=== PATIENT | female | born 1975 ===

== ENCOUNTER 2024-11-08 08:07 | Outpatient (REF) | payer OTHER, SELFPAY | END 2024-11-08 08:08 | disposition home or self-care (01) | LOC: HO.HOSX 08:07 | PROVIDERS: Visit Provider Physician Assistant | DX: Z13.89 Encounter for screening for other disorder (principal) ==

== ENCOUNTER 2024-11-29 15:22 | Outpatient (REF) | payer OTHER, SELFPAY ==
--- OUTSIDE RECORDS SUMMARY | 2024-12-02 15:24 | XMS_ITS | Clinical Summary ---
Author Organization [facility] Address [address] [place] [address] Care Team Providers Care Commercial Sales Director Name Role Phone Olga Anaya [facility] Primary Care Provider [phone] Source Comments PLEASE NOTE, if this patient is a minor, it may be UNLAWFUL to discuss sensitive information that is contained in these records (such as FAMILY PLANNING, MENTAL HEALTH or SUBSTANCE ABUSE) with the minor patient's parent or other person without the patient's specific authorization.[facility] Allergies Active Allergy Reactions Criticality Noted Date Comments Metformin Diarrhea 10/11/2020 Medications hydrocortisone 2.5 % creamIndications:R richardson Apply topically 2 (two) times daily To lower leg rash 60 g 1 04/11/20 23 Active MISCELLANEOUS MEDICAL SUPPLY MISCIndications:ed carlos enrique due to chronic venous insufficiency Knee high compression stockings 15-20mm Hg to be used daily x 99 years dispense 2 pairs Indications: visible water retention from chronic venous insufficiency 2 Each 12/27/19 24 Active pen needle, diabetic (PEN NEEDLE) 32 gauge x ndleIndications:Ty pe 2 diabetes mellitus with hyperglycemia, with long-term current use of insulin ([facility]) Use to inject insulin up to 4x/daily. E11.65 100 Each 03/29/20 24 Active blood sugar diagnostic (FREESTYLE PRECISION HILDA STRIPS) stripsIndications: Uncontrolled type 2 diabetes mellitus with hyperglycemia ([facility]) USE 1 TEST STRIP UP TO TWICE DAILY NEEDED TO CHECK BLOOD SUGAR WHEN PROMPTED BY DEE FOR HYPER OR HYPO 100 Each 05/01/20 24 Active omeprazole (PRILOSEC) [address] capsuleIndications :Gastroesophageal reflux disease without esophagitis Take 1 Capsule by mouth once daily 90 Capsule 5 06/07/20 24 Active blood-glucose sensor (FREESTYLE DEE 3 PLUS SENSOR) deviIndications:Ty pe 2 diabetes mellitus with hyperglycemia, with long-term current use of insulin ([facility]) Place 1 sensor to back of upper arm every 15 days. Use to monitor blood sugar continuously (Freestyle Dee 3 Plus) 2 Each 11 07/05/20 24 Active rosuvastatin (CRESTOR) 40 mg tabletIndications: Hyperlipidemia with target LDL less than 100 Take 1 Tablet by mouth every evening For cholesterol 90 Tablet 3 07/05/20 24 Active semaglutide (OZEMPIC) 2 mg/dose (8 mg/3 mL) pen injectorIndication s:Type 2 diabetes mellitus with hyperglycemia, with long-term current use of insulin ([facility]),Class 1 obesity due to excess calories with serious comorbidity and body mass index (BMI) of 30.0 to 30.9 in adult Inject 2 mg into the skin once a week Every Monday stop 1 mg 3 mL 11 07/30/20 24 Active meloxicam (MOBIC) 15 mg tabletIndications: Bilateral elbow joint pain Take 1 Tablet by mouth once daily For pain 30 Tablet 1 09/18/19 25 Active diclofenac sodium (VOLTAREN) 1 % gelIndications:Chr onic upper back pain,Chronic pain of multiple joints Apply 2 g topically 2 (two) times daily 100 g 1 09/18/19 25 Active acetaminophen (TYLENOL) 500 mg tabletIndications: Cough,Body aches,Acute nonintractable headache, unspecified headache type Take 2 Tablets by mouth every 8 (eight) hours as needed for pain 60 Tablet 2 09/18/19 25 Active cetirizine (ZYRTEC) 10 mg tabletIndications: Rash TAKE 1 TABLET BY MOUTH EVERY DAY FOR ALLERGIES/ITCHING 90 Tablet 09/18/19 25 Active levothyroxine 88 mcg tabletIndications: Hypothyroidism, unspecified type TAKE 1 TABLET BY MOUTH EVERY MORNING STOP LEVOTHYROXINE 75MCG 90 Tablet 1 09/18/19 25 Active insulin glargine 100 unit/mL (3 mL) penIndications:Typ e 2 diabetes mellitus with hyperglycemia, with long-term current use of insulin ([facility]) Inject 34 Units into the skin nightly at bedtime dose increase 15 mL 5 09/27/19 25 Active insulin aspart (NOVOLOG) 100 unit/mL (3 mL)Indications:Typ e 2 diabetes mellitus with hyperglycemia, with long-term current use of insulin ([facility]) Inject 10-20 Units into the skin 3 (three) times daily before meals (10 units before breakfast and dinner, 20 units before lunch) - max 40 units/day 15 mL 5 09/27/19 25 Active omega-3 acid ethyl esters (LOVAZA) 1 gram capsuleIndications :Hypertriglyceride nina Take 2 Capsules by mouth 2 (two) times daily 360 Capsule 3 09/27/19 25 Active ferrous sulfate 325 mg (65 mg iron) tabletIndications: Iron deficiency anemia secondary to inadequate dietary iron intake Take 1 Tablet by mouth once daily with breakfast 90 Tablet 1 10/03/19 25 Active Active Problems Problem Noted Date Diagnosed Date Type 2 diabetes mellitus wit h hyperglycemia, with long-term current use of insulin ([facility]) 05/05/2023 Overview (11/29/2024): DM dx: ~2008 per patient reports Glucometer: Freestyle Dee 3 Plus Current Diabetes RX: Lantus Solostar - inject 34 units at bedtime Insulin aspart - inject 10-20 units into the skin 3 times daily before meals (10 units before breakfast and dinner, 20 units before lunch, max 40 units/day) Ozempic 2 mg once weekly every Monday KAYLEE-I/ARB: BP is well-controlled, urine microalbumin/Scr ratio is <30 mg/g as of 02/23/24, eGFR >60 mL/min/1.73m2 as of 03/05/24. Per KDIGO guidelines, patient is low-risk for microalbuminuria, will hold off on KAYLEE-I/ARB for now. Statin: Rosuvastatin 40 mg daily every evening and [place] 3 - 2 capsules twice daily Pneumococcal vaccine: Pt declines PCV20 Diabetes foot exam: 02/09/24 with [facility] Normal pedal pulses, normal monofilament exam, and hygiene: good. Denies pain, numbness, tingling and burning in her feet. No Peripheral Vascular Disease. No foot ulcer, no toe or foot deformities Diabetes retinal exam: Scheduled on 02/25/25 at [facility] 06/24/24 at [facility] Glaucoma suspect, bilateral - monitor and trend glaucoma elements and testing as directed (C/D stable, IOP WNL. Totally unreliable HVF OS, possible trace (s) defect) F/U 4 months. 02/22/24 at [facility] Pnguecula - stable Vitreous floaters - resolved Glaucoma suspect - some defects and decreased avg RNFL thickness on OCT. C/D stable since '. 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 Astigmatism. Presbyopia Cysts of both ovaries 10/11/2020 Overview (12/10/2021): 11/26/2021: [facility]: US of pelvis/uterus: Impression: 1. Mildly enlarged uterus, compatible with the multiparous state. 2. 1.7 cm complicated cyst in the right ovary, most likely physiologic. 3. No free pelvic fluid. 09/26/2020: [facility]; CT pf abd/pelvis: Impression: 1. No evidence of urinary tract calculus or obstruction. 2. Subtle heterogeneity of the nephrograms, left greater than right, possibly early changes of pyelonephritis in this setting. 3. Bilateral adnexal masses, most likely ovarian cysts. Chronic RLQ pain 10/11/2020 Overview (10/11/2020): 09/26/2020: [facility]; CT pf abd/pelvis: Impression: 1. No evidence of urinary tract calculus or obstruction. 2. Subtle heterogeneity of the nephrograms, left greater than right, possibly early changes of pyelonephritis in this setting. 3. Bilateral adnexal masses, most likely ovarian cysts. S/P cholecystectomy: 08/16/2019 08/23/2020 Cyst of left kidney 08/02/2020 Overview (12/10/2021): 07/10/2020: [facility]: Us of bladder: IMPRESSION: Normal ultrasound examination of the urinary bladder. 07/10/2020: [facility]: US of abdomen:IMPRESSION: Coarsened hepatic echotexture consistent with fatty infiltration and/or hepatocellular disease as also seen on the prior study of 06/21/2016. Cholelithiasis as also seen previously; the gallbladder is again seen to be filled with calculi and sludge. There is no ultrasonographic evidence of acute cholecystitis. Moderate splenomegaly, mildly increased since the prior study. The kidneys are of normal appearance with the incidental exception of a 7.3 x 6.3 x 4.5 mm left kidney lower pole cyst. The pancreas is incompletely evaluated on this study Vertigo 04/12/2020 Nontraumatic incomplete tear of right rotator cu ff 03/08/2019 Overview (10/19/2019): 02/18/2019: Saw Ortho Dr chetna mena. Had Mri: showed Small partial thickness tear of supraspinatus. 02/11/2019: [facility]; MRI of Right shoulder: IMPRESSION: Supraspinatus tendinosis with a small partial-thickness tear in the footprint. Iron deficiency anemia secon yamile to inadequate dietary iron intake 03/08/2019 Fatty liver 02/27/2019 Overview (02/27/2019): Fatty liver and cholelithiasis in gallbladder, no acute cholecystitis per abd US 06/21/16 Diabetic eye exam ([facility]) 12/18/2017 Overview (06/26/2023): 02/09/23 [facility] some defects in retinal layers on Wellness OCT, no CME, FIELD MAP EDITOR. Astigmatism. Presbyopia [facility] 11/20/2017 Bilateral: Epiphora condition is resolved Bilateral: Headache condition is stable Bilateral: pinguecula R>L N>T condition is stable Bilateral: Vitreous floaters condition is stable Bilateral: the patient is glaucoma suspect based on disc cupping asymmetry L sl >R IOP equal and WNL Bilateral: Flashes, retina intact, no etiology seen. Condition is stable Bilateral: Type 1 diabetes No macular edema No retinopathy Myopia Astigmatism Presbyopia Seborrheic dermatitis 05/31/2017 Overview (05/31/2017): Pt is currently seeing by [facility] of tubal ligation 12/13/2015 Chronic tension-type headache, not intractable 1 09/14/2014 Hypothyroidism 11/24/2014 Hyperlipidemia LDL goal <100 08/22/2013 Mild vitamin D deficiency 08/22/2013 Resolved Problems Problem Noted Date Diagnosed Date Resolved Date Class 1 obesity due to exces s calories with serious comorbidity and body mass index (BMI) of 30.0 to 30.9 in adult 01/19/2024 09/27/2024 Calculus of gallbladder with out cholecystitis without obstruction 02/27/2019 10/11/2020 Overview (08/02/2020): 07/10/2020: [facility]: Us of bladder: IMPRESSION: Normal ultrasound examination of the urinary bladder. 07/10/2020: [facility]: US of abdomen:IMPRESSION: Coarsened hepatic echotexture consistent with fatty infiltration and/or hepatocellular disease as also seen on the prior study of 06/21/2016. Cholelithiasis as also seen previously; the gallbladder is again seen to be filled with calculi and sludge. There is no ultrasonographic evidence of acute cholecystitis. Moderate splenomegaly, mildly increased since the prior study. The kidneys are of normal appearance with the incidental exception of a 7.3 x 6.3 x 4.5 mm left kidney lower pole cyst. The pancreas is incompletely evaluated on this study Fatty liver and cholelithiasis in gallbladder, no acute cholecystitis per abd US 06/21/16 Elevated LFTs 06/27/2016 02/27/2019 Overview (06/27/2016): Fatty liver and cholelithiasis in gallbladder, no acute cholecystitis per abd US 06/21/16 Acute cystitis without hematuria 07/14/2015 02/27/2019 Overview (07/15/2015): Urine cx- gram positive cocci Treated with nitrofurantoin. ([facility]) 07/14/2015 04/04/20 19 Encounters Date Type Department Care Team Description 11/29/2024 9:40 AM EDT Office Visit [address] [phone] Dheeraj Broussard, PharmD Andrea Marie Type 2 diabetes mellitus with hyperglycemia, with long-term current use of insulin ([facility]) (Primary Dx); Hyperlipidemia LDL goal <100 10/31/2024 10:40 AM EDT Office Visit [facility] [address] [place] [phone] Yarelis Stacy DO Tiwari, Roshni Routine Papanicolaou smear (Primary Dx); Women's annual routine gynecological examination 10/24/2024 1:20 PM EDT Telemedicine Visit [address] [phone] Karsten Jaeger, Andrea Correa Type 2 diabetes mellitus with hyperglycemia, with long-term current use of insulin ([facility]) (Primary Dx) 10/03/2024 Interim Notes [address] [phone] Dian Cavazos FNP Iron deficiency anemia secondary to inadequate dietary iron intake (Primary Dx) 09/28/2024 11:00 AM EST Office Visit [address] [phone] Amado Brumfield DDS Symptomatic periapical periodontitis (Primary Dx) 09/27/2024 9:40 AM EST Office Visit [address] [phone] Dheeraj Broussard, PharmD Andrea Marie Type 2 diabetes mellitus with hyperglycemia, with long-term current use of insulin ([facility]) (Primary Dx); Hyperlipidemia LDL goal <100 from Last 3 Months Immunizations Immunization Administration Dates Next Due Flu, Preservative Free 05/26/2023,2022,06/07/2021,06/05,06/04/2019,05/25/2018,05/30/2016 Hep B, Adult/Adol (ENERGIX/RECOMBIVAX) 06/04/2019 Hep B,adult,adjuvanted (HEPLISAV) 06/07/2021,,07/17/2020 INFLUENZA, SEASONAL, INJECTA BLE, PRESERVATIVE FREE 07/29/2014 Influenza (FLUBLOK),recombinant,injectable,pre servative Free 06/07/2024 PFIZER COVID VACCINE, PURPLE CAP, 12+ 10/21/2021,12/31/2020,12/10/2020 Pfizer COVID-19 (Comirnaty), Mrna, Lnp-s, Pf, Jaden-sucrose, 30 Mcg/0.3 Ml, 12yr+ 07/14/2023 Pfizer-BioNTech COVID-19 Vac cine Bivalent, ([place] PFIZER-BIONTECH COVID-19 VACCINE BIVALENT, ([place] CAP 08/17/2022 TDAP 02/26/2019 02/26/2019 Varicella, Live Vaccine 05/06/2019,04/02/2019 Family History Medical History Relation Name Comments No Known Problems Father Diabetes Mother Relation Name Status Comments Father Mother Social History Tobacco Use Types Packs/Day Years Used Date Smoking Tobacco: Never Smokeless Tobacco: Never Tobacco Cessation:Counseling Given: Not Answered Alcohol Use Standard Drinks/Week Comments No 0.8 (1 standard drink = 0.6 oz p ure alcohol) Social Connections Answer Date Recorded Connectedness 0 07/14/2023 Financial Resource Strain Answer Date R ecorded Financial Resource Strain 0 2022 Stress Answer Date Recorded Stress 0 07/14/2023 Physical Activity Answer Date Recorded Physical Activity 0 01/01/2019 Food Insecurity Answer Date Recorded Food 0 07/14/2023 Transportation Needs Answer Date Record ed Transportation 0 07/14/2023 Housing Stability Answer Date Recorded Housing 0 07/14/2023 Safety and Environment Answer Date Kenneth rded Safety 0 07/14/2023 Utilities Answer Date Recorded Utilities 0 07/14/2023 Employment Answer Date Recorded Stress 0 02/27/2020 Comments No Sex and Gender Information Value Date Recorded Sex Assigned at Female 05/29/2017 6:52 AM PDT Legal Sex Female 5:54 AM PDT Gender Identity Female 05/29/2017 6:52 AM PDT Sexual Orientation Straight 05/29/2017 6: 52 AM PDT Last Filed Vital Signs Vital Sign Reading Time Taken Comments Blood Pressure 110/70 11/29/2024 9:29 AM EDT Pulse 90 11/29/2024 9:29 AM EDT Temperature 37.1 ??C (98.7 ??F) 11/29/2024 9:29 AM ED T Respiratory Rate 16 11/29/2024 9:29 AM EDT Oxygen Saturation 100% 11/29/2024 9:29 AM EDT Inhaled Oxygen Concentration - - Weight 59.6 kg (131 lb 6.4 oz) 11/29/2024 9:29 A M EDT Height 144.8 cm (4' 9 ) 11/29/2024 9:29 AM EDT Body Mass Index 28.43 11/29/2024 9:29 AM EDT Plan of Treatment Upcoming Encounters Date Type Department Care Team (Late st Contact Info) Description 12/17/2024 11:00 AM EDT Office Visit [address] [phone] Karsten Jaeger, RD [address] [place] [address] Maricruz Marie [address] [place] [address] 12/27/2024 10:20 AM EDT Office Visit [address] [phone] Jeannette Lemus, TERMINAL COMPUTER OPERATOR [address] [place] [address] Maricruz Marie [address] [place] [address] 01/24/2025 9:40 AM EDT Office Visit [address] [phone] Dheeraj Broussard, PharmD [address] [place] [phone] Health Maintenance Due Date Last Done Comments Anxiety Screening 1977 Dental Examination [address] Colonography 2022 Colonoscopy 2022 Colorectal Cancer Screening 2022 FIT/gFOBT 2022 Fecal DNA 2022 Flexible Sigmoidoscopy 2022 Breast Cancer Screening (Mammogram) 12/03/2023 12/02/2022, 01/01/2021, 12/26/2020, Additional history exists [id number] ( season) 2024 07/14/2023, 08/17/2022, 10/21/2021, Additional history exists Annual Preventive Care Visit 07/14/202408/2022, 11/25/2022, 02/26/2019, Additional history exists Relationship Safety Screening/Counseling 07/14/2024 07/14/2023, 04/11/2022, 04/09/2021, Additional history exists TSH Monitoring 07/14/2024 07/14/2023, 11/2022, 06/07/2021, Additional history exists Depression Annual Screen 08/14/2024 03/05/2024 Diabetes HbA1c 12/25/2024 09/27/2024, 09/14, 06/07/2024, Additional history exists Diabetes Foot Exam 02/08/2025 02/09/2024, 06/07/2021 Urine Albumin Creatinine Rat io Screening 02/22/2025 02/23/2024, 12/27/2023, 08/17/2022, Additional history exists Serum Creatinine 03/05/2025 03/05/2024, , 02/03/2023, Additional history exists Retinopathy Screening 06/24/2025 06/24/2024 , 02/22/2024, 02/22/2024, Additional history exists Lipid Screening 09/27/2025 09/27/2024, 02/12, 05/12/2023, Additional history exists Pap Smear 11/24/2025 11/24/2022, 06/04/2019 Tobacco Screening 11/29/2025 11/29/2024, 01/27/2023 Cervical Cancer Screening 11/25/2027 Pap + HPV 11/25/2027 11/25/2022, 11/24/2022 Imm-DTaP/Tdap/Td (2 - Td or Tdap) 02/26/2029 019 HIV Screening Completed 03/05/2019 Hepatitis C Screening Completed 09/11/2020 Imm-Hepatitis B Completed 06/07/2021, 08/14, 07/17/2020, Additional history exists Imm-Influenza Completed 06/07/2024, 05/14, 08/17/2022, Additional history exists Alcohol and Drug Screen Completed 09/27/19, 10/27/2023, 08/17/2022, Additional history exists Cervical Ablation/Cold-Knife Conization Discontinued Cervical Cryotherapy Discontinued Colposcopy Discontinued Endometrial Biopsy Discontinued Excision/Leep Discontinued HPV Genotyping Discontinued Imm-Pneumococcal Discontinued Vaginal Pap Discontinued Vulvoscopy Discontinued Procedures Procedure Name Priority Date/Time Associated Diagnosis Comments GLUCOSE, BLOOD BY GLUCOSE MONITORING DEVICE (CLIA WAIVED)POCT Routine 11/29/2024 9:34 AM EDT Type 2 diabetes mellitus with hyperglycemia, with long-term current use of insulin ([facility]) OTHER ORDERS SCANNED DOCUMENT 10/18/2024 3:00 AM EST OTHER ORDERS SCANNED DOCUMENT 10/04/2024 3:00 AM EST INTRAORAL - PERIAPICAL FIRST RADIOGRAPHIC IMAGE Routine 09/28/2024 11:00 AM EST Symptomatic periapical periodontitis LIMITED ORAL EVALUATION - PROBLEM FOCUSED Routine 09/28/2024 11:00 AM EST Symptomatic periapical periodontitis LIPID PANEL Routine 09/27/2024 9:51 AM EST HEMOGLOBIN GLYCOSYLATED A1C Routine 09/27/2024 9:51 AM EST BLOOD COUNT COMPLETE AUTO&AUTO DIFRNTL WBC Routine 09/27/2024 9:51 AM EST Other iron deficiency anemia IRON, TIBC, FERRITIN PANEL Routine 09/27/2024 9:51 AM EST Other iron deficiency anemia GLYCOSYLATED (A1C) DEVICE (CLIA WAIVED) POCT Routine 09/27/2024 9:23 AM EST Type 2 diabetes mellitus with hyperglycemia, with long-term current use of insulin ([facility]) EYE EXAM 06/24/2024 3:00 AM EST COMPREHENSIVE METABOLIC PANEL Routine 03/05/2024 10:42 AM EDT Bilateral elbow joint pain Iron deficiency anemia secondary to inadequate dietary iron intake Type 2 diabetes mellitus with hyperglycemia, with long-term current use of insulin ([facility]) MICROALBUMIN/CREATINI NE RATIO, URINE, RANDOM Routine 02/23/2024 9:37 AM EDT Type 2 diabetes mellitus with hyperglycemia, with long-term current use of insulin ([facility]) TSH W/RFLX FREE T4 Routine 07/14/2023 11 :23 AM EST Hypothyroidism, unspecified type REFERRAL FOR MAMMOGRAM Routine 12/02/2022 3:00 AM EDT Encounter for screening mammogram for malignant neoplasm of breast THINPREP PAP & HPV MRNA E6/E7 RFLX HPV 16,18/[address]/NG Routine 11/24/2022 8:00 PM EDT Encounter for screening for human papillomavirus (HPV) Encounter for Papanicolaou smear of vagina as part of routine gynecological examination Screening for STDs (sexually transmitted diseases) HEPATITIS C ANTIBODY Routine 09/11/2020 10:30 AM EST Iron deficiency anemia secondary to inadequate dietary iron intake ANTIBODY HIV-1&HIV-2 SINGLE RESULT Routine 03/05/2019 2:31 PM EDT Controlled type 2 diabetes mellitus without complication, with long-term current use of insulin ([facility]) from Last 3 Months or Most Recently Relevant to Health Maintenance Results * (ABNORMAL) GLUCOSE, BLOOD BY GLUCOSE MONITORING DEVICE (CLIA WAIVED)POCT (11/29/2024 9:34 AM EDT) GLUCOSE 172(A) 70 - 100 mg/dL [facility] PO[facility] Capillary Blood Blood / Unknown 9:34 AM EDT us Dheeraj Broussard PharmD LAB - BLOOD DRAW Final Re sult [facility] POCT * OTHER ORDERS SCANNED DOCUMENT (10/18/2024 3:00 AM EST) Only the most recent of2 resultswithin the time period is included. 10/18/2024 3:00 AM EST Olga Anaya [facility] SCAN OTHER ORDERS Final Result * (ABNORMAL) IRON, TIBC, FERRITIN PANEL (09/27/2024 9:51 AM EST) [facility] FERRITIN 13(L) 16 - 232 ng/mL [facility] IRON, TOTAL 31(L) 40 - 190 mcg/dL [facility] IRON BINDING CAPACITY 381 250 - 450 mcg/dL (calc) [facility] % SATURATION 8(L) 16 - 45 % (calc) [facility] Blood Blood / Unknown 09/27/2024 9 :51 AM EST 09/27/2024 9:52 AM EST Olga Anaya [facility] LAB - BLOOD DRAW Final Result [email or web address] [address] [address], [facility] [address] [address] * (ABNORMAL) BLOOD COUNT COMPLETE AUTO&AUTO DIFRNTL WBC (09/27/2024 9:51 AM EST) [facility] WHITE BLOOD CELL COUNT 7.7 3.8 - 10.8 Thousand/ uL [facility] RED BLOOD CELL COUNT 4.71 3.80 - 5.10 Million/u L [facility] HEMOGLOBIN 11.5(L) 11.7 - 15.5 g/dL [facility] HEMATOCRIT 38.7 35.0 - 45.0 % [facility] MCV 82.2 80.0 - 100.0 fL [facility] MCH 24.4(L) 27.0 - 33.0 pg [facility] MCHC 29.7(L) 32.0 - 36.0 g/dL [facility] Comment: For adults, a slight decrease in the calculated MCHC value (in the range of 30 to 32 g/dL) is most likely not clinically significant; however, it should be interpreted with caution in correlation with other red cell parameters and the patient's clinical condition. RDW 13.3 11.0 - 15.0 % [facility] PLATELET COUNT 322 140 - 400 Thousand/ uL [facility] MPV 11.0 7.5 - 12.5 fL [facility] ABSOLUTE NEUTROPHILS 5,059 1,500 - 7,800 cells/uL [facility] ABSOLUTE LYMPHOCYTES 2,210 850 - 3,900 cells/uL [facility] ABSOLUTE MONOCYTES 300 200 - 950 cells/uL [facility] ABSOLUTE EOSINOPHILS 100 15 - 500 cells/uL [facility] ABSOLUTE BASOPHILS 31 0 - 200 cells/uL [facility] NEUTROPHILS PCT 65.7 % [facility] [employer] [facility] LYMPHOCYTES 28.7 % [facility] [employer] [facility] MONOCYTES 3.9 % [facility] [employer] [facility] EOSINOPHILS 1.3 % [facility] [employer] BASOPHILS 0.4 % [facility] [employer] [facility] Blood Blood / Unknown 09/27/2024 9 :51 AM EST 09/27/2024 9:52 AM EST Ogla Anaya [facility] LAB - BLOOD DRAW Edited Result - Final [employer] [address] [address], [employer] [address] [address] * (ABNORMAL) HEMOGLOBIN GLYCOSYLATED A1C (09/27/2024 9:51 AM EST) HEMOGLOBIN A1C 7.5(H) <5.7 % of total Hgb [facility] Comment: For someone without known diabetes, a hemoglobin A1c value of 6.5% or greater indicates that they may have diabetes and this should be confirmed with a follow-up test. For someone with known diabetes, a value <7% indicates that their diabetes is well controlled and a value greater than or equal to 7% indicates suboptimal control. A1c targets should be individualized based on duration of diabetes, age, comorbid conditions, and other considerations. Currently, no consensus exists regarding use of hemoglobin A1c for diagnosis of diabetes for children. ?? 09/27/2024 9:51 AM EST 09/27/2024 9:52 AM EST Olga Anaya [facility] LAB - BLOOD DRAW Edited Result - Final Performing Organization Address City/[facility]/ZIP Co de Phone Number [employer] [facility] [address] [address], [employer] [address] [address] * (ABNORMAL) LIPID PANEL (09/27/2024 9:51 AM EST) [facility] CHOLESTEROL, TOTAL 133 <200 mg/dL [employer] [facility] HDL CHOLESTEROL 41(L) > OR = 50 mg/dL [employer] [facility] TRIGLYCERIDES 162(H) <150 mg/dL [employer] [facility] LDL-CHOLESTEROL 68 99 mg/dL (calc) [employer] [facility] Comment: Reference range: <100 Desirable range <100 mg/dL for primary prevention; ?? <70 mg/dL for patients with CHD or diabetic patients with > or = 2 CHD risk factors. LDL-C is now calculated using the Alli calculation, which is a validated novel method providing better accuracy than the Friedewald equation in the estimation of LDL-C. Chriss DAVIS et al. MARGARITA. 2013;310(19): 8773-2321 (http://education.Bio[employer]/faq/JRX706) CHOL/HDLC RATIO 3.2 <5.0 (calc) [employer] [facility] NON-HDL CHOLESTEROL 92 <130 mg/dL (calc) [employer] [facility] Comment: For patients with diabetes plus 1 major ASCVD risk factor, treating to a non-HDL-C goal of <100 mg/dL (LDL-C of <70 mg/dL) is considered a therapeutic option. 09/27/2024 9:51 AM EST 09/27/2024 9:52 AM EST us Olga Anaya [facility] LAB - BLOOD DRAW Final Result Performing Organization Address City/[facility]/ZIP Co de Phone Number [employer] [facility] [address] [address], [employer] [address] [address] * (ABNORMAL) GLYCOSYLATED (A1C) DEVICE (CLIA WAIVED) POCT (09/27/2024 9:23 AM EST) HGB A1C 245.0(A) 4.2 - 6.5 % [facility]- BACK OFFICE POCT Capillary Blood Blood / Unknown 9:23 AM EST Dheeraj Broussard PharmD LAB - BLOOD DRAW Final Re sult [facility]- BACK OFFICE POCT * EYE EXAM (06/24/2024 3:00 AM EST) 06/24/2024 3:00 AM EST Olga REMY OTHER Edited Result - Final * (ABNORMAL) COMPREHENSIVE METABOLIC PANEL (03/05/2024 10:42 AM EDT) GLUCOSE 277(H) 65 - 139 mg/dL [facility] Comment: ?Non-fasting reference interval UREA NITROGEN (BUN) 12 7 - 25 mg/dL [facility] CREATININE (blood) 0.74 0.50 - 0.99 mg/dL [facility] EGFR 101 > OR = 60 mL/min/1. 73m2 [facility] BUN/CREATININE RATIO SEE NOTE: [facility] Comment: ?? Not Reported: BUN and Creatinine are within ?? reference range. ? SODIUM 134(L) 135 - 146 mmol/L [facility] POTASSIUM 4.8 3.5 - 5.3 mmol/L [facility] CHLORIDE 101 98 - 110 mmol/L [facility] CARBON DIOXIDE 25 20 - 32 mmol/L [facility] CALCIUM 8.9 8.6 - 10.2 mg/dL [facility] PROTEIN, TOTAL 7.5 6.1 - 8.1 g/dL [facility] ALBUMIN 4.2 3.6 - 5.1 g/dL [facility] GLOBULIN 3.3 1.9 - 3.7 g/dL (calc) [facility] ALBUMIN/GLOBULI N RATIO 1.3 1.0 - 2.5 (calc) [facility] BILIRUBIN, TOTAL 0.3 0.2 - 1.2 mg/dL [facility] ALKALINE PHOSPHATASE 87 31 - 125 U/L [facility] AST 25 10 - 35 U/L [facility] ALT 43(H) 6 - 29 U/L [facility] Blood Blood / Unknown 03/05/2024 1 0:42 AM EDT 03/05/2024 10:43 AM EDT Narrative [facility] - 03/06/2024 8:49 AM EDT FASTING:NO Olga Anaya TERMINAL COMPUTER OPERATOR LAB - BLOOD DRAW Final Result Performing Organization Address [facility] Co de Phone Number [facility] [address] [place] [address], [employer] [address] [address] * MICROALBUMIN/CREATININE RATIO, URINE, RANDOM (02/23/2024 9:37 AM EDT) Pathologist [facility] CREATININE, RANDOM URINE 22 20 - 275 mg/dL [facility] MICROALBUMIN <0.2 mg/dL [employer] [id number] Comment: Reference Range Not established MICROALBUMIN/CREA TININE RATIO, RANDOM URINE NOTE <30 TR [employer] Comment: NOTE: The urine albumin value is less than 0.2 mg/dL therefore we are unable to calculate excretion and/or creatinine ratio. The ADA defines abnormalities in albumin excretion as follows: Albuminuria Category ?Result (mg/g creatinine) Normal to Mildly increased ?? <30 Moderately increased ? 30-299 Severely increased ? > OR = 300 The ADA recommends that at least two of three specimens collected within a 3-6 month period be abnormal before considering a patient to be within a diagnostic category. Urine Urine specimen / Unknown 02/23/2024 9:37 AM EDT 02/23/2024 9:38 AM EDT Dheeraj Broussard PharmD LAB - NO BLOOD DRAW Final Result Performing Organization Address [facility]/ZIP Co de Phone Number [employer] [address] [place] [address], [place] [facility] [address] [address] * TSH W/RFLX FREE T4 (07/14/2023 11:23 AM EST) TSH W/REFLEX TO FT4 2.59 0.40 - 4.50 mIU/L [employer] [facility] Comment: ?Reference Range ?> or = 20 Years ??0.40-4.50 ? Ranges ?First trimester ?0.26-2.66 ?Second trimester ?? 0.55-2.73 ?Third trimester ?0.43-2.91 Blood Blood / Unknown 07/14/2023 1 1:23 AM EST 07/14/2023 11:24 AM EST Kristen Thakkar ASSISTANT COOK LAB - BLOOD DRAW Edited Result - Final [employer] [address] [address], [employer] [address] [address] * REFERRAL FOR MAMMOGRAM (12/02/2022 3:00 AM EDT) 12/02/2022 3:00 AM EDT Olga Anaya TERMINAL COMPUTER OPERATOR IMG RFL MAMMO Edited Result - Final * THINPREP PAP & HPV MRNA E6/E7 RFLX HPV 16,18/[address]/NG (11/24/2022 8:00 PM EDT) CHLAMYDIA TRACHOMATIS RNA, TMA NOT DETECTED NOT DETECTED [employer] [facility] NEISSERIA GONORRHOEAE RNA, TMA NOT DETECTED NOT DETECTED [employer] [facility] COMMENT [employer] [facility] CLINICAL INFORMATION See Note [employer] [facility] Comment:Routine exam LMP See Note [employer] [facility] Comment:11/15/22\ PREV. PAP See Note [employer] [facility] Comment:NONE GIVEN PREV. BX See Note [employer] [facility] Comment:NONE GIVEN SOURCE See Note [employer] [facility] Comment:Cervix STATEMENT OF ADEQUACY See Note [employer] [facility] Comment: Satisfactory for evaluation. Endocervical/transformation zone component absent. INTERPRETATION/RESU LT See Note [employer] [facility] Comment:Negative for intraep ithelial lesion or malignancy. BOTTOM BLEACHER See Note [facility] [employer] [facility] Comment: JXM, CT(ASCP) CT screening location: [address] ??[address] REVIEW BOTTOM BLEACHER See Note [employer] [facility] Comment: DCR, CT(ASCP) CT screening location: [address] ??[address] COMMENT [employer] [facility] HPV MRNA E6/E7 Not Detected Not Detected [employer] [facility] Comment: Methodology: First Leveler-Mediated Amplification This assay detects E6/E7 viral messenger RNA (mRNA) from 14 high-risk HPV types (16,18,31,33,35,39,45,51,52,56,58,59,66,68). Cervical sources are required for HPV testing. If a vaginal source from a patient who has had a total hysterectomy with removal of cervix was submitted, please contact the testing laboratory for alternative testing options. For additional information, please refer to http://education.SiBEAM/faq/TQC157y5 (This link if provided for information/ educational purposes only.) CYTOLOGY Cervix uteri structure / Unknown 11/24/2022 8:00 PM EDT 11/28/2022 9:50 AM EDT Narrative [employer] [facility] - 12/02/2022 1:42 PM EDT EXPLANATORY NOTE: The Pap is a screening test for cervical cancer. It is not a diagnostic test and is subject to false negative and false positive results. It is most reliable when a satisfactory sample, regularly obtained, is submitted with relevant clinical findings and history, and when the Pap result is evaluated along with historic and current clinical information. The analytical performance characteristics of this assay, when used to test SurePath(TM) specimens have been determined by [employer]. The modifications have not been cleared or approved by the FDA. This assay has been validated pursuant to the CLIA regulations and is used for clinical purposes. For additional information, please refer to https://education.SiBEAM/faq/OZH284 (This link is being provided for information/ educational purposes only.) Mayra Kaufman MD LAB - NO BLOOD DRAW Final Result Performing Organization Address City/[facility] Co de Phone Number [employer] [facility] [address] [address], [employer] [facility] [address] [place] [address] * HEPATITIS C ANTIBODY (09/11/2020 10:30 AM EST) [facility] HEPATITIS C VIRUS SCREEN NEGATIVE NEGATIVE [facility] Blood Blood / Unknown 09/11/2020 1 0:30 AM EST 09/11/2020 4:[address] [facility] - 09/11/2020 6:48 PM EST [employer] [address] Physician Coding Specialist - Nicole Danielson MD PT ID [id number] ORD# [id number] Olga Anaya [facility] LAB - BLOOD DRAW Final Result Performing Organization Address [facility] de Phone Number [address] [address], * HIV-1 & HIV-2 ANTIBODIES (03/05/2019 2:31 PM EDT) [facility] HIV 1 AND 2 ANTIBODY SCREEN NEGATIVE NEGATIVE [facility] Comment: This assay is a 4th generation assay allowing for earlier detection of HIV infection by detecting the presence of the HIV-1 p24 antigen as well as the traditional antibodies to HIV type 1 (including group O) and type 2. ??Use of a 4th generation assay is the current CDC recommendation for HIV screening. Blood specimen (specimen) Blood / Unknown 03/05/2019 2:31 PM EDT 03/05/2019 2:51 PM EDT Narrative [facility] - 03/05/2019 8:19 PM EDT [employer], a member of [address] [address] Physician Coding Specialist - Franchesca Benjamin MD PT ID [id number] ORD# [id number] Olga REMY LAB - BLOOD DRAW Final Result [facility] [address] [place] [address], from Last 3 Months or Most Recently Relevant to Health Maintenance Insurance Spodly Member Subscriber Plan / Payer (Ef fective 2024-Present) Name:JEAN JEFF M Relation to Subscriber:Spouse Name:JEAN JEFF Date of :1977 (Home) Address: [address] [place] [address] Payer ID:[id number] Type:Indemnity Address: [place] [id number] [place] [address] [facility] [employer] Care Teams Commercial Sales Director Relationship Specialty Start Date End Date Olga Anaya FNP [address] [place] [address] PCP - General Internal Medicine 11/26/18
--- OUTSIDE RECORDS SUMMARY | 2024-12-02 15:24 | XMS_ITS | Encounter Summary ---
Author Organization [facility] Address [address] [place] [address] Care Team Providers Care Travel Writer Name Role Phone Olga Anaya MASTER COOK Primary Care Provider [phone] Encounter Details Date Type Department Care Team (Late st Contact Info) Description 08/09/2023 Interim Notes [facility] Main [address] [place] [phone] [place], [place] [address] [place], [place] [phone] Social History Tobacco Use Types Packs/Day Years Used Date Smoking Tobacco: Never Smokeless Tobacco: Never Alcohol Use Standard Drinks/Week Comments No 0.8 [...] Orientation Straight 05/29/2017 6: 52 AM PDT COVID-19 Exposure Response Date Recorded In the last 10 days, have yo u been in contact with someone who was confirmed or suspected to have Coronavirus/COVID-19? No / Unsure 07/28/2023 1:18 PM EST documented as of this encounter Plan of Treatment Upcoming Encounters Date Type Department Care Team (Late st Contact Info) Description 12/17/2024 11:00 AM EDT Office Visit [address] [phone] Karsten Jaeger, RD [address] [place] [address] Maricruz Marie [address] [place] [address] 12/27/2024 10:20 AM EDT Office Visit [address] [address] Jeannette Lemus FNP [address] [place] [address] Maricruz Marie [address] [place] [address] 01/24/2025 9:40 AM EDT Office Visit [address] [phone] Dheeraj Broussard, PharmD [address] [place] [address] documented as of this encounter Visit Diagnoses Not on filedocumented in this encounter Additional Health Concerns Assessment Noted Time PHQ-9 Depression Total Score: 0 08/17/19 23 9:45 AM PST documented as of this encounter Care Teams Travel Writer Relationship Specialty Start Date End Date Olga Anaya FNP [address] [place] [address] PCP - General Internal Medicine 11/26/18 documented as of this encounter
--- OUTSIDE RECORDS SUMMARY | 2024-12-02 15:24 | XMS_ITS | Encounter Summary ---
Author Organization [facility] Address [address] [place] [address] Care Team Providers Care Service Unit Operator Name Role Phone Olga Anaya MEND WORKER Primary Care Provider [phone] Reason for Visit * Reason Comments Diabetes Mellitus Encounter Details Date Type Department Care Team ([facility] st Contact Info) Description 11/29/2024 9:40 AM EDT Office Visit [facility] [address] [place] [phone] Dheeraj Broussard, Kay [address] [place] [address] Andrea Marie [address] [place] [address] Type 2 diabetes mellitus with hyperglycemia, with long-term current use of insulin ([facility]) (Primary Dx); Hyperlipidemia LDL goal <100 Social History Tobacco Use Types Packs/Day Years [...] Orientation Straight 05/29/2017 6: 52 AM PDT documented as of this encounter Last Filed Vital Signs Vital Sign Reading [...] Mass Index 28.43 11/29/2024 9:29 AM EDT documented in this encounter Progress Notes * Mily CookD - 11/29/2024 9:38 AM EDT Images from the original note were not included. Cinthia Jeff is a 49 year old, German-speaking female who presents today for a follow-up visit in Diabetes Clinic with Dheeraj Broussard PharmD. Referred by JONEL Trejo. Andrea Marie (German) interpreted for today's visit. is present and assisting with interpretation during this in-person visit. Accompanied by: None Subjective: Patient reports: Continues to use Freestyle Dee 3 Plus, denies experiencing any issues. Per AGP report, TIR at 48%, 0% low or very low BG values. Reports experiencing some hypoglycemia episodes for a few minutes, drank orange and pineapple juice to raise BG with good response. Administering 30 units of Lantus at bedtime due to forgetting. Per medication list, the last time she has picked up Lantus was 04/16/24. Patient reports she had a surplus of insulin due to automatic refills. Patient states she has the [facility] and will refill manually. Administering 10 units before breakfast and dinner, and 20 units before lunch. Endorses use of Ozempic 2 mg once weekly every Monday, denies experiencing any nausea, vomiting, abdominal pain, constipation or diarrhea. Denies experiencing bilateral peripheral extremity numbness or tingling. Polydipsia/polyphagia/polyuria? no Changes in diet: Reducing rice portions. No other changes. Patient was seen by accounting support specialist on 10/24/24. Reports was told to reduce carbohydrate intake and increase vegetables. Changes in physical activity: None, reports walking 2-3 times per week 20-30 minutes walking kids, continues to lead sedentary lifestyle. New concerns: None Tobacco Use: Never Smoker Tobacco Intervention:provided smoking cessation counseling Alcohol Use: No alcohol use Additional OTC medications or supplements: None Specialists managing DM/HTN: None Diabetes Current Diabetes RX: Lantus Solostar - inject 34 units at bedtime Insulin aspart - inject 10-20 units into the skin 3 times daily before meals (inject 10 units before breakfast and dinner, 20 units before lunch, max 40 units/day) Ozempic 2 mg once weekly every Monday HTN Current HTN RX: None Previous anti-hypertensives and reason for discontinuation: Lisinopril (D/C 07/28/23) due to lack of necessity, BP controlled, eGFR >60, microalbumin <30 Objective: CGM Metrics: Previous 2 weeks SMBG (CGM: Search Initiatives Dee 3 Plus) Allergies reviewed: Allergies Allergen Reactions Metformin Diarrhea BP 110/70 (Right Arm, Sitting, Regular Adult) Pulse 90 Temp 98.7 ??F (37.1 ??C) Resp 16 Ht 4' 9 (1.448 m) Wt 131 lb 6.4 oz (59.6 kg) LMP 10/12/2024 (Exact Date) (TUBAL) SpO2 100% BMI28.43 kg/m?? OB Status Having periods Smoking Status Never BSA 1.55 m?? Estimated Creatinine Clearance: 75.8 mL/min (by C-G formula based on SCr of 0.74 mg/dL). Last 3 BP Readings: Date: BP: 11/29/2024 110/70 10/31/2024 133/84 09/28/2024 155/85 Wt Readings from Last 3 Encounters: 11/29/24 131 lb 6.4 oz (59.6 kg) 10/31/24 133 lb (60.3 kg) 09/27/24 135 lb (61.2 kg) Lab Results Component Value Date HGBA1C 7.5 (H) 09/27/2024 HGBA1C 245.0 (A) 09/27/2024 HGBA1C 7.5 (H) 06/07/2024 Lab Results Component Value Date GLUCOSE 172 (A) 11/29/2024 EAG 166 07/08/2020 Lab Results Component Value Date MICRALBCREAT 11.2 10/19/2020 URALBCREAT NOTE 02/23/2024 Lab Results Component Value Date VITB12 307 03/05/2024 FOLATE 6.7 03/05/2024 Lab Results Component Value Date NA 134 (L) 03/05/2024 K 4.8 03/05/2024 BUN 12 03/05/2024 BUNCREAT SEE NOTE: 03/05/2024 CREATININE 0.74 03/05/2024 EGFR 101 03/05/2024 Lab Results Component Value Date TSH 2.59 07/14/2023 Lab Results Component Value Date TRIGLYC 162 (H) 09/27/2024 CHOL 133 09/27/2024 HDL 41 (L) 09/27/2024 LDL 68 09/27/2024 CHOLHDL 3.2 09/27/2024 NONHDL 92 09/27/2024 The 10-year ASCVD risk score (James LEZAMA, et al., 2019) is: 1.1% Assessment: Diabetes: Slightly uncontrolled A1c, Slightly uncontrolled SMBG HTN: well-controlled ASCVD: Age 40-75 yo, DM, no ASCVD = moderate intensity statin recommended in addition to lifestyle therapy Plan: E11.65,Z79.4 Type 2 diabetes mellitus with hyperglycemia, with long-term current use of insulin ([facility]) (primary encounter diagnosis) Plan : GLUCOSE, BLOOD BY GLUCOSE MONITORING DEVICE (CLIA WAIVED)POCT PHARMACOTHERAPY for diabetes Continue to use Freestyle Dee 3 Plus for CGM. Discussed with patient if she is interested in Omnipod insulin pump, to which patient says she willgo home and research. Will assess at follow-up appt. Continue to follow-up with accounting support specialist and reduce carbohydrate intake, increase vegetable intake, and increase water intake. Will continue current medications and doses Lantus Solostar - inject 34 units at bedtime (counseled to use as directed) Insulin aspart - inject 10-20 units into the skin 3 times daily before meals (inject 10 units before breakfast and dinner, 20 units before lunch, max 40 units/day) Ozempic 2 mg once weekly every Monday PHARMACOTHERAPY for HTN BP is well-controlled, urine microalbumin/Scr ratio is <30 mg/g as of 02/23/24, eGFR >60 mL/min/1.73m2 as of 03/05/24. Per KDIGO guidelines, patient is low-risk for microalbuminuria, will hold off on KAYLEE-I/ARB for now. E78.5 Hyperlipidemia LDL goal <100 ASCVD: Per 2024 ADA guidelines for lipid management, continue high-intensity statin: rosuvastatin 40 mg daily every evening and [place] 3 - 2 capsules twice daily Referral: None Follow-Up: 01/24/25 @9:40 AM Patient agrees with plan of care and verbalizes understanding. Questions were answered. Education: Medication Regimen: (indication, dosage, administration, storage, ADR, missing dose) BG testing and target/Alternate Site Testing Proper Injection Technique Focus on consuming carbohydrates from high-fiber sources like whole grains, legumes, and fruits in controlled portions to help manage blood sugar levels, and aim to fill half your plate with non-starchy vegetables like leafy greens, broccoli, or peppers for added nutrients and fiber. Avoid sugary beverages like soda and limit sweets to special occasions, choosing healthier alternatives such as water, unsweetened tea, or low-calorie drinks to minimize blood sugar spikes Incorporate at least 150 minutes of moderate physical activity per week, such as brisk walking or cycling, to improve insulin sensitivity, enhance glucose control, and support overall cardiovascular health. Sign / Symptoms of Hyperglycemia / Hypoglycemia Hypoglycemia Treatment (Rule 15) Fci Complications Uncontrolled Diabetes Dheeraj Broussard PharmD documented in this encounter Miscellaneous Notes * Patient Instructions - Dheeraj Broussard PharmD - 11/29/2024 9:55 AM EDT Omnipod 5 with Dexcom G7 Nahid Broussard PharmD, [facility] Clinical Pharmacist Press 1 for Setswana Enter extension [phone] They will not ask you what extension you want to reach, so just enter extension. You may leave me a message if I do not answer. Please state your name, date of and call back number If you are not able to keep your appointment please call 24-48 hours before your appointment to cancel or reschedule. documented in this encounter Plan of Treatment Upcoming Encounters Date Type Department Care Team (Late st Contact Info) Description 12/17/2024 11:00 AM EDT Office Visit [address] [phone] Karsten Jaeger, RD [address] [place] [address] Maricruz Marie [address] [place] [address] 12/27/2024 10:20 AM EDT Office Visit [address] [phone] Jeannette Lemus FNP [address] [place] [address] Maricruz Marie [address] [place] [address] 01/24/2025 9:40 AM EDT Office Visit [address] [phone] Dheeraj Broussard PharmD [address] [place] [address] documented as of this encounter Procedures Procedure Name Priority Date/Time Associated Diagnosis Comments GLUCOSE, BLOOD BY GLUCOSE MONITORING DEVICE (CLIA WAIVED)POCT Routine 11/29/2024 9:34 AM EDT Type 2 diabetes mellitus with hyperglycemia, with long-term current use of insulin ([facility]) documented in this encounter Results * (ABNORMAL) GLUCOSE, BLOOD BY GLUCOSE MONITORING DEVICE (CLIA WAIVED)POCT (11/29/2024 9:34 AM EDT) GLUCOSE 172(A) 70 - 100 mg/dL [facility]- BACK OFFICE POCT Capillary Blood Blood / Unknown 9:34 AM EDT us Dheeraj Broussard PharmD LAB - BLOOD DRAW Final Re sult [facility] OFFICE POCT documented in this encounter Visit Diagnoses Diagnosis Type 2 diabetes mellitus with hyperglycemia, with long-term current use of insulin ([facility])- Primary Hyperlipidemia LDL goal <100 Other and unspecified hyperlipidemia documented in this encounter Additional Health Concerns Assessment Noted Time PHQ-9 Depression Total Score: 0 03/05/20 24 9:58 AM PDT documented as of this encounter Care Teams Service Unit Operator Relationship Specialty Start Date End Date Olga Anaya FNP [address] [place] [address] PCP - General Internal Medicine 11/26/18 documented as of this encounter
--- OUTSIDE RECORDS SUMMARY | 2024-12-02 15:24 | XMS_ITS | Clinical Summary ---
Author Organization [facility] Address [address] [place] [address] Phone Care Team Providers Care Retail Beauty Specialist Name Role Phone Greg Garvin NP Primary Care Provider [phone] Allergies No known active allergies Medications flash glucose scanning reader (FreeStyle Dee 14 Day [place]) misc 1 each by Other route. 09/11/19 21 Active flash glucose sensor (FREESTYLE DEE 14 DAY SENSOR MISC) Inject 1 each under the skin. 11/12/19 22 Active pen needle, diabetic 32 gauge x /32 needle Use 1/xd to administer Lantus every night DXE11.65 08/03/20 21 Active metformin HCl (METFORMIN ORAL) Take by mouth. Activ e acetaminophen (TYLENOL) 500 mg tablet Take 2 tablets (1,000 mg total) by mouth. 08/27/19 22 Active cyclobenzaprine (FLEXERIL) 5 mg tablet Take 1 tablet (5 mg total) by mouth 3 (three) times a day if needed for muscle spasms. 11/07/2021 CYCLOBENZAPRINE 5 MG TABLET [facility] [place], [place] [phone] 15.00 Each 0 5 TAKE 1 TABLET BY MOUTH THREE TIMES A DAY NEEDED FOR MUSCLE SPASM Authorized by: JOSE CULP 11/08/19 22 Active dapagliflozin propanediol (Farxiga) 10 mg tablet Take 1 tablet (10 mg total) by mouth. 11/12/19 22 Active diclofenac (VOLTAREN) 75 mg EC tablet Take 1 tablet (75 mg total) by mouth. 01/04/20 22 Active dulaglutide (Trulicity) 1.5 mg/0.5 mL pen injector injection Inject 0.5 mL (1.5 mg total) under the skin. 11/12/19 Active famotidine (PEPCID) 20 mg tablet Take 1 tablet (20 mg total) by mouth. 11/19/19 Active ferrous sulfate 325 mg (65 mg elemental iron) tablet Take 1 tablet (325 mg total) by mouth 3 (three) times a day. 12/15/19 Active insulin glargine (LANTUS SoloStar) 100 unit/mL (3 mL) injection pen Inject 30 Units under the skin. 11/11/19 Active levothyroxine (SYNTHROID, LEVOTHROID) 88 mcg tablet Take 1 tablet (88 mcg total) by mouth 1 (one) time each day in the morning. PLEASE STOP LEVOTHYROXINE 75 MCG 08/25/19 Active pravastatin (PRAVACHOL) 80 mg tablet Take 1 tablet (80 mg total) by mouth at bedtime. FOR CHOLESTEROL. STOP PRAVASTATIN 40 MG DOSE 11/16/19 Active sucralfate (CARAFATE) 100 mg/mL suspension Take 10 mL (1 g total) by mouth. 11/19/19 Active Immunizations Name Administration Dates Next Due [employer] SARS-CoV-2 COVID-19, mRNA, LNP-S, preservative free 10/21/2021,12/31/2020,12/10/2020 Surgical History Surgery Date Site/Laterality Comments CHOLECYSTECTOMY PROCEDURE: [place] LAPAROSCOPY SURG CHOLECYSTECTOMY SECTION PROCEDURE: [place] DELIVERY ONLY TUBAL LIGATION PROCEDURE: HISTORICAL TUBAL LIGATION Medical History Medical History Date Comments Diabetes (CMS/HCC V24, CMS/HCC V28) DX:Diabetes (HCC) Hypercholesteremia DX:Hyperchole steremia Hypochondriasis DX:Hypochondrias is Seborrheic dermatitis DX:Seborrh eic dermatitis Fatty liver DX:Fatty liver 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 Social History Tobacco Use Types Packs/Day Years Used Date Smoking Tobacco: Never Smokeless Tobacco: Never Alcohol Use Standard Drinks/Week Comments Not Currently 1 (1 standard drink = 0.6 oz pur e alcohol) Comments Unknown Sex and Gender Information Value Date Recorded Sex Assigned at Not on file Legal Sex Female 2:53 PM EST Gender Identity Not on file Sexual Orientation Not on file Obstetrics History Last Filed Vital Signs Vital Sign Reading Time Taken Comments Blood Pressure 131/89 01/04/2022 2:03 PM EDT Pulse 100 01/04/2022 2:03 PM EDT Temperature - - Respiratory Rate - - Oxygen Saturation - - Inhaled Oxygen Concentration - - Weight 59.4 kg (131 lb) 01/04/2022 2:03 PM EDT Height 144.8 cm (4' 9 ) 01/04/2022 2:03 PM EDT Body Mass Index 28.35 01/04/2022 2:03 PM EDT Plan of Treatment Health Maintenance Due Date Last Done Comments Diabetes: Annual Foot Exam 11/13/1987 Diabetes: Annual Retina Eye Exam 11/13/1987 DTaP,Tdap,and Td Vaccines (1 - Tdap) 1996 Hepatitis B Vaccines (1 of 3 - 19+ 3-dose series) 1996 Cervical Cancer Screening: P ap Smear 1998 Colorectal Cancer Screening: Colonoscopy 07/13/2022 HIV Screening 07/13/2022 Social Influencers of Health Screening 07/13/2022 Diabetes: Annual GFR (Glomerular Filtration Rate) 10/12/2022 10/12/2021 COVID-19 Vaccine (2023-2 5 season) 2024 10/21/2021, 12/31/2020, 12/10/2020 Diabetes: Annual Urine Albumin-Creatinine Ratio (uACR) 09/27/2024 11/13/2020 Diabetes: Blood Sugar Contro l Test (HGBA1C) 09/27/2024 10/12/2021 Breast Cancer Screening 12/02/2024 12/03/19, 12/27/2020, 03/09/2018 Depression Screening 03/05/2025 03/05/2024 Influenza Vaccine (Season Ended) 2025 Cholesterol Screening (Lipid Panel) 10/12/2026 10/12/2021 Hepatitis C Screening Completed 09/11/2020 HIB Vaccines Aged Out No longer eligi ble based on patient's age to complete this topic HPV Vaccines Aged Out No longer eligi ble based on patient's age to complete this topic Hepatitis A Vaccines Aged Out No long er eligible based on patient's age to complete this topic IPV Vaccines Aged Out No longer eligi ble based on patient's age to complete this topic MMR Vaccines Aged Out No longer eligi ble based on patient's age to complete this topic Meningococcal ACWY Vaccine Aged Out N o longer eligible based on patient's age to complete this topic Meningococcal B Vaccine Aged Out No l onger eligible based on patient's age to complete this topic Pneumococcal Vaccine: Pediatrics (0 to 5 Years) and At-Risk Patients (6 to 64 Years) Aged Out No longer eligible b ased on patient's age to complete this topic RSV Immunization Patients Under 20 months Aged Out No longer eligible b ased on patient's age to complete this topic Varicella Vaccines Aged Out No longer eligible based on patient's age to complete this topic Procedures Procedure Name Priority Date/Time Associated Diagnosis Comments [facility] SCREENING DIGITAL Routine 12/02/2022 10:43 AM EDT Encounter for screening mammogram for malignant neoplasm of breast ANNUAL BMP BLOOD TEST Routine 10/12/2021 HEMOGLOBIN A1C Routine 10/12/2021 LIPID PANEL Routine 10/12/2021 URINE ALBUMIN CREATININE RATIO Routine 11/13/2020 HEPATITIS C SCREENING Routine 09/11/2020 from Last 3 Months or Most Recently Relevant to Health Maintenance Results * [facility] SCREENING DIGITAL (12/02/2022 10:43 AM EDT) Anatomical Region Laterality Modality Mammography 12/02/2022 9:54 AM EDT Narrative 12/02/2022 10:[address] [facility] Diagnostic Imaging Department [address] [place], [place] [id number] Patient: ??CINTHIA GALICIA ?/Age/Sex: 1975 - 47 - F Unit#: ??[id number] ? Location/Status: ??SPDIMAM/REG CLI ? Mnemonic/Ordering Site: ??DIGSC/SPMAM Ordering Physician: ??GREG GARVIN RECTIFYING OPERATOR Elan Screening Digital - 12/02/22 - 1029 HISTORY: The patient is a 47-year-old female presenting for routine screening mammography. FINDINGS: ??CC and MLO views of both breasts were obtained using full field digital mammography in the [employer] 2000-D unit. Computer aided detection with the [employer] Second Look 7.2-H was employed. In addition, breast tomosynthesis in MLO projection was performed. The breasts are largely fatty-replaced (the breasts are almost entirely fatty, category A density, as calculated by [employer] Volpara software), as also demonstrated on prior studies performed 01/01/2021, 12/26/2020, and 03/09/2018. There is no cluster of microcalcifications, mass, or area of architectural distortion. There is no skin thickening or nipple retraction. IMPRESSION: No mammographic evidence of malignancy. A negative mammogram in the presence of a clinically suspicious palpable abnormality does not preclude the possibility of malignancy or alter the indications for biopsy. BIRADS Code Class 1: ??Negative PQRI CPT II 3341F Code 74122, 06534 PQRI 225 CPT II 7025F Dictating Physician: ??ALL PRABHAKAR MD Electronically Signed by: ??ALL PRABHAKAR MD Dic Date/Time: ??12/02/22 1038 Sign date/Time: ??12/02/22 1043 Procedure Note All Prabhakar MD - 09/15/2023 [facility] Diagnostic Imaging Department [address] [place] [id number] Patient: CINTHIA GALICIA Kulwinder /Age/Sex: 1975 - 47 - F Unit#: [id number] Location/Status: SPDIMAM/REG CLI Mnemonic/Ordering Site: [facility] Ordering Physician: GREG GARVIN RECTIFYING OPERATOR Elan Screening Digital - 12/02/22 - 1029 HISTORY: The patient is a 47-year-old female presenting for routinescreening mammography. FINDINGS: CC and MLO views of both breasts were obtained using fullfield digital mammography in the [email or web address] 2000-D unit. Computer aideddetection with the i[employer] Second Look 7.2-H was employed. In addition, breasttomosynthesis in MLO projection was performed. The breasts are largely fatty-replaced (the breasts are almost entirelyfatty, category A density, as calculated by [employer] Volpara software), as also demonstrated on prior studies performed 01/01/2021, 12/26/2020, and03/09/2018. There is no cluster of microcalcifications, mass, or area ofarchitectural distortion. There is no skin thickening or nipple retraction. IMPRESSION: No mammographic evidence of malignancy. A negative mammogram in the presence of a clinically suspicious palpable abnormality does not preclude the possibility of malignancy or alter the indications for biopsy. BIRADS Code Class 1: Negative PQRI CPT II 3341F Code 81584, 68317 PQRI 225 CPT II 7025F Dictating Physician: ALL PRABHAKAR MD Electronically Signed by: ALL PRABHAKAR MD Dic Date/Time: 12/02/22 1038 Sign date/Time: 12/02/22 1043 Result [facility] Greg Garvin RECTIFYING OPERATOR IMG BI PROCEDURES Final Result * Annual BMP Blood Test (10/12/2021) Pathologist [facility] Annual BMP Blood Test Abstracted Result [facility] Historical Provider HEALTH MAINTENANCE Final Result * Hemoglobin A1c (10/12/2021) Pathologist [facility] Hemoglobin A1C 0.0 % Comment:No interpretation, a bstracted Blood Venous blood specimen / Unknown Result [facility] Historical Provider LAB BLOOD ORDERABLES Daisy l Result * Lipid panel (10/12/2021) Pathologist [facility] Triglycerides 0 mg/dL Comment:No interpretation, a bstracted Cholesterol 0 mg/dL Comment:No interpretation, a bstracted HDL 0 mg/dL Comment:No interpretation, a bstracted LDL Cholesterol 0 mg/dL Comment:No interpretation, a bstracted Blood Venous blood specimen / Unknown Result [facility] Historical Provider LAB BLOOD ORDERABLES Daisy l Result * Urine Albumin Creatinine Ratio (11/13/2020) Pathologist [facility] Urine Albumin Creatinine Ratio Abstracted Result [facility] Historical Provider HEALTH MAINTENANCE Final Result * Hepatitis C Screening (09/11/2020) Pathologist [facility] Hepatitis C Screening Abstracted Result [facility] Historical Riana RAMIREZ HEALTH MAINTENANCE Final Result from Last 3 Months or Most Recently Relevant to Health Maintenance [place] [address] [address] [place] [address] PLAN Care Teams Retail Beauty Specialist Relationship Specialty Start Date End Date Greg Garvin NP [address] [place] [address] PCP - General 09/19/22
== END 2024-11-29 15:23 | disposition home or self-care (01) ==
LOC: HO.HOSX 15:22
PROVIDERS: Visit Provider Physician Assistant
DX: Z13.89 Encounter for screening for other disorder (principal)